=== PATIENT | female | born 1940 | race Caucasian/White ===

== ENCOUNTER 2019-01-10 16:47 | Emergency (ER) | payer OTHER ==
[~2019-01-10] VITALS: Ht 152.4 cm; Wt 77.1 kg
[2019-01-10 17:27] VITALS: BP 199/96
[2019-01-10] MEDS ORDERED: PAXIL10 MG PO (17:30)
[2019-01-10] MEDS ORDERED: COQ-10100 MG PO (17:31)
[2019-01-10] MEDS ORDERED: RED YEAST RICE600 MG PO (17:31)
[2019-01-10] MEDS ORDERED: IBUPROFEN 800800 M1 PO (17:31)
[2019-01-10] MEDS ORDERED: DIOVAN160 MG PO (17:32)
[2019-01-10] MEDS ORDERED: NAPROXEN375 MG PO (17:46)
[2019-01-10] MEDS ORDERED: TRAMADOL 50 MG50 MG PO (17:46)
--- NOTE | 2019-01-11 09:36 | EKG ---
[place] [address] 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 01/11/19 0936 1721 20 Tom Lockett MD, FACC /EPI
== END 2019-01-10 18:08 | disposition home or self-care (01) ==
LOC: ER 16:47
DX: S20.212A Contusion of left front wall of thorax, initial encounter (principal); S00.83XA Contusion of other part of head, initial encounter; I10 Essential (primary) hypertension; W22.8XXA Striking against or struck by other objects, initial encounter; Y93.89 Activity, other specified; Y92.89 Other specified places as the place of occurrence of the external cause; Y99.8 Other external cause status

== ENCOUNTER → 2020-06-26 | Outpatient (CLI) | payer OTHER ==
[~2020-06-26] MED LIST: COQ-10100 MG PO; DIOVAN160 MG PO; IBUPROFEN 800800 M1 PO; NAPROXEN375 MG PO; PAXIL10 MG PO; RED YEAST RICE600 MG PO; TRAMADOL 50 MG50 MG PO
== END ==
LOC: SJCVC 12:24
PROVIDERS: ATTEND Internal Medicine Cardiovascular Disease
DX: I49.1 Atrial premature depolarization (principal); R94.31 Abnormal electrocardiogram [ECG] [EKG]; I25.10 Atherosclerotic heart disease of native coronary artery without angina pectoris; E78.00 Pure hypercholesterolemia, unspecified; I10 Essential (primary) hypertension; Z86.718 Personal history of other venous thrombosis and embolism; Z78.9 Other specified health status; Z79.899 Other long term (current) drug therapy; Z82.49 Family history of ischemic heart disease and other diseases of the circulatory system

== ENCOUNTER → 2020-10-07 | Outpatient (CLI) | payer OTHER | LOC: SJCVCIMAG 12:00 | PROVIDERS: ATTEND Internal Medicine Cardiovascular Disease | DX: I25.10 Atherosclerotic heart disease of native coronary artery without angina pectoris (principal); I10 Essential (primary) hypertension; E78.5 Hyperlipidemia, unspecified; Z79.899 Other long term (current) drug therapy; Z86.718 Personal history of other venous thrombosis and embolism ==

== ENCOUNTER → 2021-03-31 | Outpatient (CLI) | payer OTHER | LOC: SJCVC 14:48 | PROVIDERS: ATTEND Internal Medicine Cardiovascular Disease | DX: R94.31 Abnormal electrocardiogram [ECG] [EKG] (principal); I44.4 Left anterior fascicular block; I25.10 Atherosclerotic heart disease of native coronary artery without angina pectoris; I10 Essential (primary) hypertension; E78.00 Pure hypercholesterolemia, unspecified; Z86.718 Personal history of other venous thrombosis and embolism; Z78.9 Other specified health status; Z86.16 Personal history of COVID-19; Z72.89 Other problems related to lifestyle; Z79.82 Long term (current) use of aspirin; Z79.899 Other long term (current) drug therapy ==